=== PATIENT | male | born 2000 | race Caucasian/White ===

== ENCOUNTER 2022-05-10 12:30 | Emergency (ER) | payer OTHER ==
[~2022-05-10] VITALS: Ht 177.8 cm; Wt 80.1 kg
[2022-05-10] MEDS ORDERED: DOXY-350 PO (12:48)
[2022-05-10 15:51] VITALS: BP 148/70
== END 2022-05-10 15:52 | disposition home or self-care (01) ==
LOC: M ED 12:30
DX: L02.414 Cutaneous abscess of left upper limb (principal); Z79.2 Long term (current) use of antibiotics